=== PATIENT | female | born 1950 | race Caucasian/White ===

== ENCOUNTER 2020-09-02 14:25 | Emergency (ER) | payer MEDICARE ==
[2020-09-02] MEDS ORDERED: Diphtheria,Pertussis(Acell),Tetanus Vaccine 0.5 ML Syringe IM ONE (15:03)
--- NOTE | 2020-09-02 15:05 | EDM.PDOC ---
ED HPI GENERAL MEDICAL PROBLEM - General Chief Complaint: Lower Extremity Injury/Pain Stated Complaint: LEFT LEG SWOLLEN Time Seen by Provider: 09/02/20 14:45 Source of Information: Reports: Patient History Limitations: Reports: No Limitations - History of Present Illness INITIAL COMMENTS - FREE TEXT/NARRATIVE: 70-year-old female had her left leg go through a 1 piece of wood 4 days ago, scratching the anterior aspect of her left lower leg. She had some bruising present which seem to be improving but over the past 24 hours has now become more swollen, reddened, slightly warm and more painful. No fevers or chills. Onset: Sudden Duration: Day(s): (3 days ago) Location: Reports: Lower Extremity, Left - Related Data Allergies Allergy/AdvReac Type Severity Reaction Status Date / Time No Known Allergies Allergy Verified 09/02/20 14:39 Home Meds: Home Meds Cranberry Fruit Extract [Theracran Hp For Kids] 50 mg PO DAILY 03/12/19 [History] L.acidoph,Paracasei, B.lactis [Probiotic] 1 each PO DAILY 03/12/19 [History] Multivitamin [One Daily Multivitamin] 1 each PO DAILY 03/12/19 [History] Calcium Carbonate [Calcium] 500 mg PO DAILY 03/15/19 [History] Past Medical History HEENT History: Reports: None Genitourinary History: Reports: None, Other (See Below) Other Genitourinary History: right kidney romoved due to cancer Musculoskeletal History: Reports: Fibromyalgia Endocrine/Metabolic History: Reports: Obesity/BMI 30+ Oncologic (Cancer) History: Reports: Renal - Infectious Disease History Infectious Disease History: Reports: Chicken Pox, Measles, Mumps - Past Surgical History Head Surgeries/Procedures: Reports: None HEENT Surgical History: Reports: Cataract Surgery Female Surgical History: Reports: None Endocrine Surgical History: Reports: None Musculoskeletal Surgical History: Reports: Shoulder Surgery Other Musculoskeletal Surgeries/Procedures:: left shoulder Oncologic Surgical History: Reports: None Dermatological Surgical History: Reports: None Social & Family History - Tobacco Use Tobacco Use Status *Q: Former Tobacco User Used Tobacco, but Quit: Yes Month/Year Tobacco Last Used: 1985 Second Hand Smoke Exposure: No - Caffeine Use Caffeine Use: Reports: None, Coffee - Recreational Drug Use Recreational Drug Use: No Review of Systems - Review of Systems Review Of Systems: See Below Constitutional: Denies: Fever Eyes: Reports: No Symptoms Respiratory: Reports: No Symptoms Cardiovascular: Reports: No Symptoms GI/Abdominal: Reports: No Symptoms Skin: Reports: Bruising Neurological: Denies: Paresthesia ED EXAM, GENERAL - Physical Exam Exam: See Below Exam Limited By: No Limitations General Appearance: Alert, No Apparent Distress Head: Atraumatic Respiratory/Chest: No Respiratory Distress Extremities: Other (The lower extremities were compared, there was symmetric other than an injury on the anterior aspect of the left lower leg. She has a linear abrasion which is healing nicely, some slight swelling which feels to be a hematoma, which is very tender and slightly red and warm to the touch) Neurological: Alert, Oriented Psychiatric: Normal Affect, Normal Mood Course - Vital Signs Last Recorded V/S: Last Vital Signs Temp 97.9 F 09/02/20 14:50 Pulse 84 09/02/20 14:50 Resp 17 09/02/20 14:50 BP 145/76 H 09/02/20 14:50 Pulse Ox 95 09/02/20 14:50 - Orders/Labs/Meds Meds: Medications Discontinued Medications Generic Name Dose Route Start Last Admin Trade Name Freq PRN Reason Stop Dose Admin Diphtheria/Tetanus/Acell Pertussis 0.5 ml 09/02/20 15:03 09/02/20 15:12 Diphtheria,Pertussis(Acell),Tetanus Vaccine 0.5 Ml Syringe IM 09/02/20 15:04 0.5 ml .ONCE ONE Administration - Re-Assessments/Exams Free Text/Narrative Re-Assessment/Exam: 09/02/20 17:08 I believe this patient is developed a hematoma which may be getting infected along with some superficial cellulitis. I encouraged her to use 4 inch Johnny wraps to decrease swelling and put some slight pressure on the hematoma, take cephalexin 500 mg 3 times a day, and elevate the leg when able. Otherwise increase activity as tolerated. Recheck if not improving in 4 or 5 days. Departure - Departure Time of Disposition: 15:16 Disposition: Home, Self-Care 01 Clinical Impression: Cellulitis of left leg, Hematoma of lower leg - Discharge Information Instructions: Cellulitis, Adult Referrals: Carter Mas MD [Primary Care Provider] - Forms: ED Department Discharge Care Plan Goals: Use a wrap for support and to control swelling, activity as tolerated, and take antibiotic 3 times a day until gone. Recheck at any time if swelling is worsening despite treatment or you have increased pain or fever. Sepsis Event Note (ED) - Focused Exam Vital Signs: Vital Signs Temp Pulse Resp BP Pulse Ox 09/02/20 14:50 97.9 F 84 17 145/76 H 95
== END 2020-09-02 15:16 | disposition home or self-care (01) ==
LOC: JP.ED 14:25
DX: S80.12XA Contusion of left lower leg, initial encounter (principal); L03.116 Cellulitis of left lower limb; E66.9 Obesity, unspecified; Z87.891 Personal history of nicotine dependence; Z68.39 Body mass index [BMI] 39.0-39.9, adult; Z23 Encounter for immunization; W22.8XXA Striking against or struck by other objects, initial encounter
CPT/HCPCS: 90471; 90715; 99283; 99283-25

== ENCOUNTER 2020-11-27 00:49 | Emergency (ER) | payer MEDICARE ==
[2020-11-27] MEDS ORDERED: cloNIDine 0.1 MG Tab PO ONE (01:15)
[2020-11-27] MEDS ORDERED: diphenhydrAMINE 25 MG Cap PO ONE ×2 (01:16→02:39)
[2020-11-27] MEDS ORDERED: predniSONE 20 MG Tab PO ONE (01:16)
--- NOTE | 2020-11-27 01:21 | EDM.PDOC ---
ED HPI GENERAL MEDICAL PROBLEM - General Chief Complaint: Bite:Animal, Insect Stated Complaint: BEE STING Time Seen by Provider: 11/27/20 01:00 Source of Information: Reports: Patient, Old Records, RN History Limitations: Reports: No Limitations - History of Present Illness INITIAL COMMENTS - FREE TEXT/NARRATIVE: 70 yo female presents with swelling of the R lower eye lid and a HERNANDEZ. Was stung earlier yesterday and her R eye is almost swollen shut. She had a mild HERNANDEZ yesterday that is pretty severe today. Normally does not have HTN, at her last check a couple weeks ago it was normal. No fever. No nausea. Pain is to the R side of her face/head. No trouble breathing or swallowing. Is concerned about taking medication due to having only one kidney. Onset: Gradual Onset Date: 11/26/20 Duration: Day(s): (1.5), Getting Worse Location: Reports: Head, Face Quality: Reports: Ache Severity: Severe Improves with: Reports: None Worsens with: Reports: Other (? time) Context: Reports: Other (See HPI) Associated Symptoms: Reports: Headaches, Other (R face, especially below the eye is swollen). Denies: Diaphoresis, Fever/Chills, Nausea/Vomiting Treatments [employer]: Reports: Other (see below) (none) Headache Pain Score (Numeric/FACES): 10 - Related Data Allergies Allergy/AdvReac Type Severity Reaction Status Date / Time No Known Allergies Allergy Verified 11/27/20 01:02 Home Meds: Home Meds Cranberry Fruit Extract [Theracran Hp For Kids] 50 mg PO DAILY 03/12/19 [History] L.acidoph,Paracasei, B.lactis [Probiotic] 1 each PO DAILY 03/12/19 [History] Multivitamin [One Daily Multivitamin] 1 each PO DAILY 03/12/19 [History] Calcium Carbonate [Calcium] 500 mg PO DAILY 03/15/19 [History] cloNIDine [Catapres] 0.1 mg PO Q12HR PRN #14 tab 11/27/20 [Rx] Past Medical History HEENT History: Reports: None Genitourinary History: Reports: None, Other (See Below) Other Genitourinary History: right kidney romoved due to cancer Musculoskeletal History: Reports: Fibromyalgia Endocrine/Metabolic History: Reports: Obesity/BMI 30+ Oncologic (Cancer) History: Reports: Renal - Infectious Disease History Infectious Disease History: Reports: Chicken Pox, Measles, Mumps - Past Surgical History Head Surgeries/Procedures: Reports: None HEENT Surgical History: Reports: Cataract Surgery Female Surgical History: Reports: None Endocrine Surgical History: Reports: None Musculoskeletal Surgical History: Reports: Shoulder Surgery Other Musculoskeletal Surgeries/Procedures:: left shoulder Oncologic Surgical History: Reports: None Dermatological Surgical History: Reports: None Social & Family History - Tobacco Use Tobacco Use Status *Q: Never Tobacco User - Caffeine Use Caffeine Use: Reports: None - Recreational Drug Use Recreational Drug Use: No ED ROS GENERAL - Review of Systems Review Of Systems: See Below Constitutional: Reports: No Symptoms HEENT: Reports: Eye Pain (around the R eye). Denies: Throat Swelling Respiratory: Reports: No Symptoms Cardiovascular: Reports: No Symptoms GI/Abdominal: Reports: No Symptoms. Denies: Nausea Musculoskeletal: Reports: No Symptoms Skin: Reports: Erythema (around R eye). Denies: Bruising, Pruritis, Rash Neurological: Reports: Headache (R sided). Denies: Dizziness, Syncope ED EXAM, ANIMAL BITE - Physical Exam Exam: See Below Exam Limited By: No Limitations General Appearance: Alert, WD/WN, No Apparent Distress, Obese Eye Exam: Bilateral Eye: Other (Eyelids nearly swollen shut on R) Ears: Normal External Exam, Normal Canal, Hearing Grossly Normal Nose: Normal Inspection, No Blood Throat/Mouth: Normal Inspection, Normal Lips, Normal Oropharynx, Normal Voice, No Airway Compromise Head: Atraumatic, Normocephalic Neck: Normal Inspection Respiratory/Chest: No Respiratory Distress, Lungs Clear, Normal Breath Sounds, No Accessory Muscle Use Cardiovascular: Regular Rate, Rhythm, No Edema Extremities: Normal Inspection Neurological: Alert, Oriented, CN II-XII Intact, Normal Cognition, No Motor/Sensory Deficits Psychiatric: Normal Affect, Normal Mood Skin Exam: Normal Color, Warm/Dry, Other (redness without a lot of increased warmth around the R eye, el. the lower lid where she was stung. ) Course - Vital Signs Last Recorded V/S: Last Vital Signs Temp 36.5 C 11/27/20 01:04 Pulse 82 11/27/20 02:08 Resp 20 11/27/20 01:04 BP 175/85 H 11/27/20 02:08 Pulse Ox 96 11/27/20 02:08 - Orders/Labs/Meds Meds: Medications Discontinued Medications Generic Name Dose Route Start Last Admin Trade Name Leland PRN Reason Stop Dose Admin Clonidine HCl 0.1 mg 11/27/20 01:15 11/27/20 01:24 Clonidine 0.1 Mg Tab PO 11/27/20 01:16 0.1 mg ONETIME ONE Administration Diphenhydramine HCl 50 mg 11/27/20 01:16 11/27/20 01:24 Diphenhydramine 25 Mg Cap PO 11/27/20 01:17 50 mg ONETIME ONE Administration Prednisone 20 mg 11/27/20 01:16 11/27/20 01:24 Prednisone 20 Mg Tab PO 11/27/20 01:17 20 mg ONETIME ONE Administration - Re-Assessments/Exams Free Text/Narrative Re-Assessment/Exam: 11/27/20 02:08 BP now down to 175, HERNANDEZ no better yet. Free Text/Narrative Re-Assessment/Exam: 11/27/20 02:32 Eye a little less puffy, can see out now. BP 140/80, HERNANDEZ about 50% better. Departure - Departure Time of Disposition: 02:35 Disposition: Home, Self-Care 01 Condition: Fair Clinical Impression: Local reaction to bee sting Qualifiers: Encounter type: initial encounter Injury intent: accidental or unintentional Qualified Code(s): T63.441A - Toxic effect of venom of bees, accidental (unintentional), initial encounter HTN (hypertension) Qualifiers: Hypertension type: unspecified Qualified Code(s): I10 - Essential (primary) hypertension Headache Qualifiers: Headache type: unspecified Headache chronicity pattern: acute headache Intractability: not intractable Qualified Code(s): R51.9 - Headache, unspecified - Discharge Information *PRESCRIPTION DRUG MONITORING PROGRAM REVIEWED*: Not Applicable *COPY OF PRESCRIPTION DRUG MONITORING REPORT IN PATIENT NATALYA: Not Applicable Instructions: Bee, Wasp, or Hornet Sting, Adult, Hypertension, Adult, Easy-to- Read Referrals: Carter Mas MD [Primary Care Provider] - Forms: ED Department Discharge Additional Instructions: Take clonidine 0.1 mg every 12 hrs for BP greater than 160. Take diphenhydramine 50 mg every 4-6 hrs for continued eye puffiness. Take acetaminophen up to 1000 mg every 6 hrs as needed for headache. Avoid salt or salty foods. Recheck with your provider later this week for a BP evaluation. Sepsis Event Note (ED) - Evaluation Sepsis Screening Result: No Definite Risk - Focused Exam Vital Signs: Vital Signs Temp Pulse Resp BP BP Pulse Ox 11/27/20 02:08 82 175/85 H 96 11/27/20 01:24 184/85 H 11/27/20 01:04 36.5 C 94 20 195/87 H 100
== END 2020-11-27 02:51 | disposition home or self-care (01) ==
LOC: JP.ED 00:49
DX: T63.441A Toxic effect of venom of bees, accidental (unintentional), initial encounter (principal); I10 Essential (primary) hypertension; R51.9 Headache, unspecified; E66.9 Obesity, unspecified; Z68.36 Body mass index [BMI] 36.0-36.9, adult
CPT/HCPCS: 99283; A9270; J7512

== ENCOUNTER 2021-11-17 09:45 | Emergency (ER) | payer MEDICARE ==
[2021-11-17] MEDS: Ondansetron 4 MG Tab.DIS PO ONE (10:25)
== END 2021-11-17 11:12 | disposition home or self-care (01) ==
LOC: JP.ED 09:45
DX: U07.1 COVID-19 (principal); E66.9 Obesity, unspecified; Z68.41 Body mass index [BMI] 40.0-44.9, adult; Z79.899 Other long term (current) drug therapy; Z90.710 Acquired absence of both cervix and uterus; Z87.891 Personal history of nicotine dependence
CPT/HCPCS: 99284; Q0162; U0002

== ENCOUNTER 2023-10-20 10:49 | Emergency (ER) | payer MEDICARE ==
[2023-10-20] MEDS: Ketorolac 30 MG/ML SDV IM ONE (11:58)
[2023-10-20] MEDS: Methocarbamol 500 MG Tab PO ONE (11:59)
== END 2023-10-20 12:25 | disposition home or self-care (01) ==
LOC: JP.ED 10:49
DX: M77.8 Other enthesopathies, not elsewhere classified (principal); E66.9 Obesity, unspecified; Z90.710 Acquired absence of both cervix and uterus; Z79.899 Other long term (current) drug therapy; Z91.030 Bee allergy status; Z68.39 Body mass index [BMI] 39.0-39.9, adult
CPT/HCPCS: 73130; 96372; 99283; A9270; J1885